=== PATIENT | female | born 1975 | race Caucasian/White ===

== ENCOUNTER 2016-06-02 07:00 | Inpatient (IN) ==
[2016-06-04 10:49] LABS: URINE MICRO REVIEW NEEDED? NO; URINE SOURCE CLEAN CATCH
[2016-06-04 10:49] LABS: MANUAL DIFF NEEDED? NO
[2016-06-04 11:12] LABS: BASO% 0.1 % (0.0-0.8); EOS# 0.16 X1000 (0.0-0.7); EOS% 1.7 % (0.0-10.0); HEMATOCRIT 37.1 % (37.0-47.0); HEMOGLOBIN 12.3 g/dL (12.0-16.0); IMM GRAN# 0.03 X1000 (0.0-0.04); IMM GRAN% 0.3 % (0.0-0.5); LYMPH# 2.45 X1000 (1.2-3.4); LYMPH% 25.7 % (20.5-51.1); MCH 32.1 PG (27-31); MCHC 33.2 g/dL (33-37); MCV 96.9 FL (81-99); MONO# 0.65 X1000 (0.11-0.59); MONO% 6.8 % (1.7-9.3); MPV 9.5 FL (7.4-10.4); NEUT% 65.4 % (42.2-75.2); PLT 260 X1000 (130-400); RBC 3.83 XMIL (4.2-5.4)
[2016-06-04 11:13] LABS: BILIRUBIN URINE NEGATIVE (NEGATIVE); BLOOD URINE MODERATE (NEGATIVE); COLOR YELLOW; GLUCOSE URINE NEGATIVE (NEGATIVE); LEUKOCYTES URINE NEGATIVE (NEGATIVE); NITRITE URINE NEGATIVE (NEGATIVE); PH URINE 5.5; PROTEIN URINE TRACE mg/dL (NEGATIVE); SP GRAVITY URINE 1.029; TURBIDITY URINE CLEAR (CLEAR); UROBILINOGEN URINE NORMAL (NORMAL)
[2016-06-04 11:15] LABS: UR EPITHELIAL CELLS <10 /HPF (<10); URINE BACTERIA NEGATIVE /HPF; URINE RBC <10 /HPF (<10); URINE WBC <10 /HPF (<10)
--- NOTE | 2016-06-08 11:01 | HISTORY AND PHYSICAL ---
HISTORY OF PRESENT ILLNESS: Tanisha is a 41-year-old, white female, para 3, with a history of a and 2 vaginal deliveries and a tubal ligation, being admitted at this time for a total abdominal hysterectomy, right salpingo-oophorectomy, and left salpingectomy. She has been a patient of Dr. Calhoun for quite some time and he referred her over for me to be the primary surgeon as he preferred to be just assisting on the procedure. We discussed the nature of the procedure with Tanisha. She feels that she is ready to move on in this proposed direction. She has used Depo-Provera as a conservative approach but that does not really seem to make any significant impact. She relates that her menses are still regular and moderate to heavy but severe dysmenorrhea. She also has an issue with chronic pain, mostly on the right side. We did discuss the management of her ovaries and she does want to move in the direction of having the right tube and ovary removed and the left tube removed but to preserve the left ovary if it appears to be okay. We discussed the nature of the surgery being an abdominal hysterectomy. The risks involved including but not limited to injury to surrounding structures, infection, hemorrhage, and even . We discussed the usual length of hospitalization, the recuperation time at home and the restrictions therein, and overall she feels well informed in regards to the proposed procedure including other risk of anesthesia. She certainly will let me know if she thinks of any other questions in the meantime, but felt well informed. PAST MEDICAL AND SURGICAL HISTORY: Other than the above, she has had right carpal tunnel surgery. ALLERGIES: She does relate to allergies to doxycycline and sulfa. MEDICATIONS: Include Protonix 40 mg. FAMILY HISTORY: Significant for heart disease in both parents and high blood pressure, and maternal grandmother had breast cancer. SOCIAL HISTORY: Otherwise basically noncontributory. REVIEW OF SYSTEMS: Otherwise basically noncontributory. PHYSICAL EXAMINATION: GENERAL: Examination is that of a well-developed, well-nourished, 41-year-old, white female in no acute distress. VITAL SIGNS: Stable. Noted on the chart. HEENT: Examination unremarkable. NECK: Without nodes or thyromegaly. HEART: Regular without murmurs, gallops, or rubs. LUNGS: Clear. BREASTS: Without mass or tenderness. ABDOMEN: Soft, nontender. No masses. Well-healed old Pfannenstiel incision scar. PELVIC EXAMINATION: Normal external female genitalia. Vagina is clean. Cervix, no lesions. Recent Pap smear was normal. Uterus is normal size, mobile. No adnexal masses were felt. RECTOVAGINAL: Examination is unremarkable. EXTREMITIES: Without tenderness or edema. NEUROLOGICAL: Examination grossly normal. ASSESSMENT: Moderate to severe dysmenorrhea, menorrhagia and chronic pelvic pain limited to the right side. PLAN: Plan is for ALYSIA, right salpingo-oophorectomy, and left salpingectomy.
[2016-06-09] MEDS ORDERED: PEPCID ONE (05:28)
[2016-06-09] MEDS ORDERED: LR 1,000 ML ONE (05:29)
[2016-06-09] MEDS ORDERED: KEFZOL 1 GM/D5W 50 ML ONE (05:29)
[2016-06-09] MEDS ORDERED: VALIUM ONE (05:29)
[2016-06-09] MEDS ORDERED: TRANSDERM-SCOP ONE (05:29)
[2016-06-09] MEDS ORDERED: REGLAN ONE (05:29)
[2016-06-09 07:25] LABS: URINE MICRO REVIEW NEEDED? NO; URINE SOURCE CATH
[2016-06-09 07:30] LABS: BILIRUBIN URINE NEGATIVE (NEGATIVE); BLOOD URINE NEGATIVE (NEGATIVE); COLOR YELLOW; GLUCOSE URINE NEGATIVE (NEGATIVE); LEUKOCYTES URINE NEGATIVE (NEGATIVE); NITRITE URINE NEGATIVE (NEGATIVE); PH URINE 6.5; PROTEIN URINE NEGATIVE (NEGATIVE); TURBIDITY URINE CLEAR (CLEAR); UROBILINOGEN URINE NORMAL (NORMAL)
[2016-06-09 07:32] LABS: UR EPITHELIAL CELLS <10 /HPF (<10); URINE BACTERIA NEGATIVE /HPF; URINE RBC <10 /HPF (<10); URINE WBC <10 /HPF (<10)
[2016-06-09] MEDS ORDERED: DIPRIVAN 1% ONE (08:26)
[2016-06-09] MEDS ORDERED: FENTANYL ONE (08:26)
[2016-06-09] MEDS: MORPHINE ONE ×5 (08:33→09:30)
[2016-06-09] MEDS ORDERED: LR 500 ML ONE (08:39)
[2016-06-09] MEDS ORDERED: MORPHINE PCA ONE (08:46)
[2016-06-09] MEDS: PHENERGAN ONE ×2 (08:55→09:36)
[2016-06-09] MEDS ORDERED: ZOFRAN ONE (09:07)
[2016-06-09] MEDS ORDERED: NEOSTIGMINE ONE (09:07)
[2016-06-09] MEDS ORDERED: STERILE WATER INJ. ONE (09:08)
[2016-06-09] MEDS ORDERED: QUELICIN (DOSE) ONE (09:08)
[2016-06-09] MEDS ORDERED: DECADRON ONE (09:08)
[2016-06-09] MEDS ORDERED: XYLOCAINE-MPF 2% ONE (09:08)
[2016-06-09] MEDS ORDERED: ROBINUL ONE (09:08)
[2016-06-09] MEDS ORDERED: PHENERGAN IV PRN (09:16)
[2016-06-09] MEDS ORDERED: ZOFRAN IV PRN (09:16)
[2016-06-09] MEDS ORDERED: MORPHINE PCA IV PRN (09:16)
[2016-06-09] MEDS ORDERED: SODIUM CHLORIDE 0.9% INJ PRN (09:16)
[2016-06-09] MEDS ORDERED: BENADRYL IV PRN (09:16)
[2016-06-09] MEDS ORDERED: NARCAN IV PRN (09:16)
[2016-06-09] MEDS: LR 1,000 ML IV SCH ×2 (10:05→16:31)
--- NOTE | 2016-06-09 14:28 | PROGRESS NOTE ---
DATE: 06/09/2016 SUBJECTIVE: Tanisha is now almost 6 hours status post total abdominal hysterectomy with right salpingo-oophorectomy and left salpingectomy. Her room up on the fourth floor is not ready yet so she was taken back to the outpatient area and is resting there at this point in time. She is having actually an appropriate amount of discomfort and seems to be relieved somewhat by the PARASITOLOGY TEACHER. I did indicate to her that if that does not seem to be adequate over the next short period of time that we can always reconsult with anesthesia to see if anything further can be done regarding that. OBJECTIVE: Vital signs: Otherwise, vital signs are stable. She is afebrile. Abdomen: Soft. Extremities: Without tenderness or edema. : The urine output is clear and abundant. ASSESSMENT: Overall stable status post total abdominal hysterectomy, right salpingo-oophorectomy, and left salpingectomy. PLAN: Plans are to continue as doing with sips of water and ice chips today, hopefully a clear liquid diet with crackers this evening, and progressing on were tomorrow morning as ordered.
--- NOTE | 2016-06-09 14:35 | OPERATIVE NOTE ---
PROCEDURE DATE: 06/09/2016 SURGEON: Dr. Perez. MACHINE DESIGN TEACHER: Dr. Calhoun. ANESTHESIA: General, Dr. Maldonado. PREOPERATIVE DIAGNOSES: Abnormal bleeding, mostly in the form of menorrhagia, severe dysmenorrhea, chronic pelvic pain greater on the right than the left. PROCEDURES PERFORMED: Total abdominal hysterectomy with right salpingo-oophorectomy and left salpingectomy. OPERATIVE NOTE: Tanisha was brought to the operating room, and after being placed upon the operating table and under general anesthesia, she was prepped and draped in the usual sterile fashion in the supine position with a Yuan catheter in place. The abdomen was then entered going through a Pfannenstiel incision just slightly above the old scar. Once the abdomen was entered the Moshe retractor was inserted and loops of bowel were displaced out of the field of surgery using 2 moist lap packs. At that point, the fundus of the uterus was visualized and grasped with a Guillermo clamp for traction purposes and elevated upward toward the incision site. This gave us a good view of the uterus, both tubes and ovaries. We did not actually find anything going on with the right adnexal that would likely have been causing the pain but due to prior conversations with the patient not only between she and Dr. Calhoun but she and myself and our plans to remove that adnexa we proceeded to do so. First on the left side we elected to go ahead and remove the fallopian tube as that ovary appeared normal and she was having no symptoms on that side. The tube was elevated with a pickling grader, held with a Francois clamp and then using the LigaSure we were able to clamp, cauterized and transect in a stepwise manner the fallopian tube until it was removed and then passed off the table. Then moving back to the right side the right ovary and tube were grasped and held with a Francois clamp, elevated so that we could visualize the infundibulopelvic ligament. There were no adhesions around that area and the ureter was found to be deep to these structures. We then using the LigaSure again, we were able to clamp, cauterize and transect in a stepwise manner to extirpate the right adnexa from its attachment to the infundibulopelvic ligament and ultimately away from the uterus itself. We then used the ligature on both sides to release the round ligament attachments to the uterus and then angled it towards the uterine vessels and once we released that attachment we then used the Myers scissors to incise the reflected bladder peritoneum and with both sharp and blunt dissection we were able to mobilize the bladder down and away anteriorly so that we could proceed on with the remainder of the procedure. We then used Thomas clamp on each side to secure the uterine vessels. This was done in a 2-step manner to thereby doubly ligate the uterine vessels. Again we took care to assure that the bladder was down and away anteriorly and then a continued stepwise alternating manner we clamped, transected and suture ligated the remaining paracervical tissue using #0 Polysorb throughout the procedure. This was carried all the way down to ultimately including the pedicle containing the uterosacral ligament on each side and once that was done, 1 more bite was taken towards the upper angle of the vagina and then we used the Jonathan scissors to directly incise into the upper vagina and to in a circumferential manner Extirpate the cervix away from its vaginal attachments. At that point, we also placed a Thomas clamp on the upper angles of the vagina on each side and the customary angle sutures were placed so that when tied hemostasis of the angle was achieved as well as closure. This left 3 more [id number] style stitches to complete closure of the vaginal cuff and to achieve hemostasis in doing that. At this point, we then irrigated the pelvic cavity with sterile water, and inspected for hemostasis. A couple of small oozing points were noted on the bladder edge and reflected peritoneum from taking that down away from its scarred place from her and after achieving hemostasis there we then inspected from one side of the pelvis down and across the cuff and back up the other side of the pelvis to assure that hemostasis was good. After so confirming we then cut all the excess suture material. We removed the moist lap packs x2 as well as the self-retaining Moshe retractor and then began closure of the abdominal incision by placing Mary clamps on the margins of the parietal peritoneum and then placed a running #2-0 Polysorb to reapproximate the peritoneum. After so doing we then inspected the subfascial plane and reapproximated the fascia with a running and alternating interlocking style stitch to reapproximate the fascia starting on the left side with a #1 Polysorb and running it across to the midpoint and then likewise starting on the right side and again with a running and alternating interlocking stitch over to the midpoint. Once the fascia was closed the subcutaneous layer was controlled hemostatically with the electrocautery. The skin edges were then brought together with a surgical stapler and the incision site was cleaned, was covered with a sterile dry gauze dressing and having tolerated the procedure well Tanisha was then awakened and transferred to the stretcher and to the recovery room in stable condition draining clear urine in the Yuan catheter bag. ESTIMATED BLOOD LOSS: At the end of the case was 60 mL. And again it should be noted that all of our counts were correct at the end of the procedure. I did speak with her family member out in the waiting area to let him know that the procedure had gone well, that we had no unplanned events, and we were able to accomplish everything that we had hoped to be able to do from the outset. He was pleased with the report and had no further questions.
[2016-06-09] MEDS ORDERED: CHLORASEPTIC SORE THROAT LOZENGE MT PRN (15:53)
[2016-06-09] MEDS: PERIDEX MT SCH ×2 (16:26→20:56)
[2016-06-10] MEDS: LR 1,000 ML IV SCH ×2 (03:18→08:21)
[2016-06-10 05:58] LABS: HEMOGLOBIN 10.6 g/dL (12.0-16.0); MCV 98.2 FL (81-99); MPV 9.5 FL (7.4-10.4)
[2016-06-10 06:24] LABS: HEMATOCRIT 31.9 % (37.0-47.0); MCH 32.6 PG (27-31); MCHC 33.2 g/dL (33-37); RBC 3.25 XMIL (4.2-5.4)
[2016-06-10] MEDS ORDERED: SALINE LOCK IV FLUID XX ONE (06:30)
[2016-06-10] MEDS ORDERED: PROTONIX PO SCH (07:00)
[2016-06-10] MEDS: NORCO-10 PO PRN ×2 (07:35→11:27)
[2016-06-10] MEDS ORDERED: FLUZONE QUAD 2016-2017 SYRINGE IM ONE (08:00)
[2016-06-10] MEDS: PERIDEX MT SCH (08:19)
--- NOTE | 2016-06-10 08:48 | PROGRESS NOTE ---
DATE: 06/10/2016 SUBJECTIVE: Postop day #1: Tanisha is now about 24 hours status post ALYSIA with RSO and left salpingectomy. She had a reasonably good night, some appropriate discomfort that was managed with the VIOLIN REPAIRER. The VIOLIN REPAIRER has now been converted over to oral medication, and she will be on [place] 10 one every 3-4 hours if needed for pain. She has remained afebrile with stable vital signs. Abdomen is soft. Dressing is dry. Extremities without tenderness or edema. White count this morning was 10.8, hematocrit 31.9. Excellent urine output throughout the night, and she has been able to void this morning on her own since the catheter has been discontinued. She is stable, status post total abdominal hysterectomy with right salpingo-oophorectomy and left salpingectomy. PLAN: The plan is to continue with regular diet. Increasing activity. Will see how she progresses this morning with the anticipation of likely discharge later this morning or early afternoon.
[2016-06-10 11:41] VITALS: BP 118/70
--- NOTE | 2016-06-10 13:47 | PROGRESS NOTE ---
DATE: 06/10/2016 Tanisha is now past 24 hours status post total abdominal hysterectomy with right salpingo- oophorectomy and left salpingectomy. She has been stable throughout. She has been able to increase her diet and her activity. She is having the appropriate amount of discomfort which is moderately relieved with the oral pain medication as prescribed. She feels that she is ready to be discharged to home to the care of her family. She feels that she will rest better at home. She remains afebrile. Her vital signs are stable. The incision has been uncovered and appears clean and dry and intact. Extremities without tenderness or edema. Lab work noted earlier today and stable. Instructions have been given in regards to routine activity, sexual activity, incision care, lifting and driving and overall she feels well informed and ready for discharge. She will be discharged today to the care of her family and plans were made for her to return to the office next Wednesday or Wednesday at her convenience for staple removal and her first postop check. She will take a prescription for [place] 10, #36, and she will take a half to 1 tablet every 3-4 hours if needed for pain. Also due to a past history of some bladder spasms we will give her a prescription for Pyridium 200 mg #24 and she can take one of those every 6 hours if needed for bladder spasms.
== END 2016-06-10 14:06 | disposition home or self-care (01) | DRG 743 ==
LOC: SURHOLD 06-09 02:05 → 4N 06-09 15:03
PROVIDERS: ADMIT Obstetrics & Gynecology; ATTEND Obstetrics & Gynecology
PROC: 0UT00ZZ Resection of Right Ovary, Open Approach (ICD-10-PCS; 2016-06-09)
PROC: 0UT90ZZ Resection of Uterus, Open Approach (ICD-10-PCS; principal; 2016-06-09 06:52)
PROC: 0UTC0ZZ Resection of Cervix, Open Approach (ICD-10-PCS; 2016-06-09 06:52)
PROC: 0UT70ZZ Resection of Bilateral Fallopian Tubes, Open Approach (ICD-10-PCS; 2016-06-09 06:52)
DX: N94.6 Dysmenorrhea, unspecified (principal); N92.0 Excessive and frequent menstruation with regular cycle; Z80.3 Family history of malignant neoplasm of breast; Z82.49 Family history of ischemic heart disease and other diseases of the circulatory system; Z79.899 Other long term (current) drug therapy; Z23 Encounter for immunization; Z87.11 Personal history of peptic ulcer disease; Z87.891 Personal history of nicotine dependence
CPT/HCPCS: 81001; 84703; 85025; 85027; 86850; 86900; 86901; 88307; 94761; J0330; J0690; J1100; J2270; J2405; J2550; J3010; J7120; Q2038; J2710